=== PATIENT | male | born 1955 | race Caucasian/White ===

== ENCOUNTER 2017-02-05 04:21 | Emergency (ER) | payer SELFPAY ==
[~2017-02-05] VITALS: Ht 185.4 cm; Wt 108.9 kg
--- NOTE | ~2017-02-05 | EKG ---
[place], [place] ELECTROCARDIOGRAM REPORT NAME: BRANDT DHILLON UNIT #: [id number] ROOM: DOCTOR: GWYN AMBROSIO,ALEJANDRA BIRTHDATE: [birth year] DOS: 02/05/2017 TIME: 6:54 a.m. IMPRESSION: 1. Sinus rhythm. 2. Sinus bradycardia. 3. Nondiagnostic ST elevation in the anterior leads. ALEJANDRA PASCAL MD CM:EKGRPT:ELECTROCARDIOGRAM REPORT 1403 1423 ALEJANDRA PASCAL MD
--- NOTE | ~2017-02-05 | EKG ---
[place], [place] ELECTROCARDIOGRAM REPORT NAME: BRANDT DHILLON UNIT #: [id number] ROOM: DOCTOR: GWYN AMBROSIO,ALEJANDRA BIRTHDATE: [birth year] DOS: 02/05/2017 TIME: 0533 hours. IMPRESSION: 1. Sinus rhythm. 2. Nondiagnostic ST elevation in the anterior leads. 3. Sinus bradycardia. ALEJANDRA PASCAL MD CM:EKGRPT:ELECTROCARDIOGRAM REPORT 1402 1422 ALEJANDRA PASCAL MD
--- NOTE | ~2017-02-05 | EKG ---
[place], [place] ELECTROCARDIOGRAM REPORT NAME: BRANDT DHILLON UNIT #: [id number] ROOM: DOCTOR: GWYN AMBROSIO,ALEJANDRA BIRTHDATE: [birth year] DOS: 02/05/2017 TIME: 4:26 a.m. IMPRESSION: 1. Sinus rhythm. 2. Nonspecific ST-T changes. ALEJANDRA PASCAL MD CM:EKGRPT:ELECTROCARDIOGRAM REPORT 1403 1424 ALEJANDRA PASCAL MD
[2017-02-05] MEDS ORDERED: METFORMIN HCL500 MG PO (04:30)
[2017-02-05] MEDS ORDERED: LOSARTAN POTASS50 M1 PO (04:31)
[2017-02-05 04:38] LABS: BASO % 0.4 % (0.0-1.0); EOS # 0.4 10*3/uL (0.0-0.4); EOS % 4.1 % (1.0-4.0); HEMATOCRIT 46.2 % (42.0-52.0); HEMOGLOBIN 16.1 g/dl (14.0-18.0); LYMPH # 2.3 10*3/uL (1.3-4.4); LYMPH % 25.1 % (27.0-41.0); MEAN CELL VOLUME 85.9 fl (80.0-94.0); MEAN CORPUSCULAR HGB 29.9 pg (27.0-31.0); MEAN CORPUSCULAR HGB CONC 34.8 g/dl (33.0-37.0); MEAN PLATELET VOLUME 9.4 fl (9.6-12.3); MONO # 0.8 10*3/uL (0.1-1.0); MONO % 8.8 % (3.0-9.0); NEUT # 5.5 10*3/uL (2.3-7.9); NEUT % 61.5 % (47.0-73.0); PLATELET COUNT AUTOMATED 294 10*3/uL (130-400); RED BLOOD COUNT 5.38 10*6/uL (4.50-5.90); RED CELL DISTRI WIDTH 12.8 % (0-14.5)
[2017-02-05 04:47] LABS: ACT PARTIAL THROMBO TIME 27.2 SECONDS (20.8-31.5)
[2017-02-05 04:57] LABS: ALBUMIN 3.8 gm/dl (3.1-4.5); ALKALINE PHOSPHATASE 112 U/L (45-117); BUN 21 mg/dl (7-24); CHLORIDE 103 mmol/L (98-107); CREATININE 0.96 mg/dL (0.70-1.30); POTASSIUM 3.8 mmol/L (3.5-5.1); SGOT/AST 11 IU/L (3-35); SGPT/ALT 22 U/L (12-78); SODIUM 140 mmol/L (136-145); TOTAL PROTEIN 7.9 gm/dL (6.4-8.2)
[2017-02-05 05:00] LABS: TROPONIN I 0.229 ng/ml (<0.045)
== END 2017-02-05 07:45 | disposition short-term general hospital (02) ==
LOC: ED 04:21
PROVIDERS: Emergency Medicine Emergency Medical Services
DX: I10 Essential (primary) hypertension (principal); I24.9 Acute ischemic heart disease, unspecified; F17.200 Nicotine dependence, unspecified, uncomplicated; F10.10 Alcohol abuse, uncomplicated; Z79.84 Long term (current) use of oral hypoglycemic drugs; Z79.899 Other long term (current) drug therapy

== ENCOUNTER 2017-03-25 08:45 | Inpatient (IN) | payer MEDICAID ==
[2017-03-25] VITALS (15 sets, daily range): BP systolic 134–228; BP diastolic 84–113
[~2017-03-25] VITALS: Ht 178 cm; Wt 88.1 kg
[~2017-03-25 08:45] MED LIST: COZAAR100 MG PO; METFORMIN HCL500 MG PO
[2017-03-25] MEDS ORDERED: LIPITOR40 MG PO (08:58)
[2017-03-25] MEDS ORDERED: METOPROLOL SUCC50 M1 PO (08:58)
[2017-03-25] MEDS ORDERED: BRILINTA90 M1 PO (08:59)
[2017-03-25] MEDS ORDERED: ASPIR LOW81 MG PO (08:59)
[2017-03-25 09:21] LABS: BASO % 0.5 % (0.0-1.0); EOS # 0.3 10*3/uL (0.0-0.4); HEMATOCRIT 41.6 % (42.0-52.0); HEMOGLOBIN 14.5 g/dl (14.0-18.0); LYMPH # 1.3 10*3/uL (1.3-4.4); LYMPH % 14.8 % (27.0-41.0); MEAN CELL VOLUME 84.7 fl (80.0-94.0); MEAN CORPUSCULAR HGB 29.5 pg (27.0-31.0); MEAN CORPUSCULAR HGB CONC 34.9 g/dl (33.0-37.0); MEAN PLATELET VOLUME 9.5 fl (9.6-12.3); MONO # 0.8 10*3/uL (0.1-1.0); MONO % 8.8 % (3.0-9.0); NEUT # 6.1 10*3/uL (2.3-7.9); NEUT % 71.7 % (47.0-73.0); PLATELET COUNT AUTOMATED 238 10*3/uL (130-400); RED BLOOD COUNT 4.91 10*6/uL (4.50-5.90); RED CELL DISTRI WIDTH 13.3 % (0-14.5); WHITE BLOOD COUNT 8.5 10*3/uL (4.8-10.8)
[2017-03-25 09:28] LABS: ACT PARTIAL THROMBO TIME 27.1 SECONDS (20.8-31.5)
[2017-03-25 09:38] LABS: ALBUMIN 3.8 gm/dl (3.1-4.5); ALKALINE PHOSPHATASE 126 U/L (45-117); BUN 27 mg/dl (7-24); CHLORIDE 106 mmol/L (98-107); CREATININE 0.94 mg/dL (0.70-1.30); SGOT/AST 14 IU/L (3-35); SGPT/ALT 30 U/L (12-78); SODIUM 139 mmol/L (136-145); TOTAL PROTEIN 7.8 gm/dL (6.4-8.2)
[2017-03-25 09:48] LABS: TROPONIN I < 0.015 ng/ml (<0.045)
[2017-03-26] VITALS: BP 150/76
[2017-03-26 01:15] VITALS: BP 131/86
[2017-03-26 04:00] VITALS: BP 117/69
[2017-03-26 06:05] LABS: BASO # 0.1 10*3/uL (0.0-0.1); BASO % 0.6 % (0.0-1.0); EOS # 0.5 10*3/uL (0.0-0.4); EOS % 4.4 % (1.0-4.0); HEMATOCRIT 41.4 % (42.0-52.0); HEMOGLOBIN 14.3 g/dl (14.0-18.0); LYMPH % 19.1 % (27.0-41.0); MEAN CELL VOLUME 85.5 fl (80.0-94.0); MEAN CORPUSCULAR HGB 29.5 pg (27.0-31.0); MEAN CORPUSCULAR HGB CONC 34.5 g/dl (33.0-37.0); MEAN PLATELET VOLUME 9.6 fl (9.6-12.3); MONO # 0.9 10*3/uL (0.1-1.0); MONO % 8.6 % (3.0-9.0); NEUT # 6.9 10*3/uL (2.3-7.9); NEUT % 66.8 % (47.0-73.0); PLATELET COUNT AUTOMATED 251 10*3/uL (130-400); RED BLOOD COUNT 4.84 10*6/uL (4.50-5.90); RED CELL DISTRI WIDTH 13.5 % (0-14.5); WHITE BLOOD COUNT 10.3 10*3/uL (4.8-10.8)
[2017-03-26 06:06] LABS: ALBUMIN 3.7 gm/dl (3.1-4.5); BUN 29 mg/dl (7-24); CHLORIDE 101 mmol/L (98-107); CREATININE 1.01 mg/dL (0.70-1.30); POTASSIUM 3.7 mmol/L (3.5-5.1); SGOT/AST 14 IU/L (3-35); SGPT/ALT 31 U/L (12-78); SODIUM 137 mmol/L (136-145)
[2017-03-26 06:15] LABS: ALKALINE PHOSPHATASE 115 U/L (45-117); CHOLESTEROL 129 mg/dL (<200); FREE T4 1.12 ng/dl (0.76-1.46); HDL CHOLESTEROL 33 mg/dl (40-60); LDL CHOLESTEROL 49 mg/dL (9-159); TOTAL PROTEIN 7.5 gm/dL (6.4-8.2); TRIGLYCERIDES 236 mg/dl (<150); VLDL CHOLESTEROL 47 mg/dL (6-40)
[2017-03-26 07:15] LABS: VITAMIN D, 25-HYDROXY 18.1 ng/mL (30-100)
[2017-03-26 08:00] VITALS: BP 160/73
[2017-03-26 12:00] VITALS: BP 170/100
[2017-03-26] MEDS ORDERED: VITAMIN D31000 UNI1 PO (13:26)
[2017-03-26] MEDS ORDERED: HYDR25T PO (13:26)
== END 2017-03-26 15:05 | disposition home or self-care (01) | DRG 206 ==
LOC: ED 08:45 → ICCU 11:15 → EDHOLD 11:15 → ICCU 15:20
PROVIDERS: Emergency Medicine; Internal Medicine
DX: M94.0 Chondrocostal junction syndrome [Tietze] (principal); Z94.89 Other transplanted organ and tissue status; E11.65 Type 2 diabetes mellitus with hyperglycemia; E83.41 Hypermagnesemia; I16.1 Hypertensive emergency; D72.810 Lymphocytopenia; I48.0 Paroxysmal atrial fibrillation; E78.5 Hyperlipidemia, unspecified; R74.8 Abnormal levels of other serum enzymes; E66.9 Obesity, unspecified; K21.9 Gastro-esophageal reflux disease without esophagitis; F41.9 Anxiety disorder, unspecified; R00.1 Bradycardia, unspecified; I25.2 Old myocardial infarction; Z95.5 Presence of coronary angioplasty implant and graft; Z87.891 Personal history of nicotine dependence; Z79.899 Other long term (current) drug therapy; Z79.84 Long term (current) use of oral hypoglycemic drugs; R07.81 Pleurodynia; Z82.49 Family history of ischemic heart disease and other diseases of the circulatory system; Z82.3 Family history of stroke; Z90.49 Acquired absence of other specified parts of digestive tract; Z88.8 Allergy status to other drugs, medicaments and biological substances; Z79.82 Long term (current) use of aspirin; Z68.27 Body mass index [BMI] 27.0-27.9, adult

== ENCOUNTER 2017-05-14 09:45 | Inpatient (IN) | payer MEDICAID ==
[2017-05-14] VITALS (11 sets, daily range): BP systolic 110–146; BP diastolic 52–90
[~2017-05-14] VITALS: Ht 177.8 cm; Wt 91.7 kg
[~2017-05-14 09:45] MED LIST changes: +ASPIR LOW81 MG PO; +BRILINTA90 M1 PO; +HYDR25T PO; +LIPITOR40 MG PO; +METOPROLOL SUCC50 M1 PO; +VITAMIN D31000 UNI1 PO
[2017-05-14] MEDS ORDERED: Avapro300 MG PO (10:05)
[2017-05-14 10:15] LABS: BASO # 0.1 10*3/uL (0.0-0.1); BASO % 0.5 % (0.0-1.0); EOS # 0.3 10*3/uL (0.0-0.4); EOS % 2.7 % (1.0-4.0); HEMATOCRIT 42.8 % (42.0-52.0); HEMOGLOBIN 15.1 g/dl (14.0-18.0); LYMPH # 1.8 10*3/uL (1.3-4.4); LYMPH % 17.3 % (27.0-41.0); MEAN CELL VOLUME 85.4 fl (80.0-94.0); MEAN CORPUSCULAR HGB 30.1 pg (27.0-31.0); MEAN CORPUSCULAR HGB CONC 35.3 g/dl (33.0-37.0); MEAN PLATELET VOLUME 9.3 fl (9.6-12.3); MONO # 0.9 10*3/uL (0.1-1.0); MONO % 8.2 % (3.0-9.0); NEUT # 7.3 10*3/uL (2.3-7.9); NEUT % 70.9 % (47.0-73.0); PLATELET COUNT AUTOMATED 275 10*3/uL (130-400); RED BLOOD COUNT 5.01 10*6/uL (4.50-5.90); RED CELL DISTRI WIDTH 13.3 % (0-14.5); WHITE BLOOD COUNT 10.4 10*3/uL (4.8-10.8)
[2017-05-14 10:27] LABS: ACT PARTIAL THROMBO TIME 24.3 SECONDS (20.8-31.5)
[2017-05-14 10:31] LABS: ALBUMIN 3.9 gm/dl (3.1-4.5); ALKALINE PHOSPHATASE 143 U/L (45-117); BUN 26 mg/dl (7-24); CHLORIDE 106 mmol/L (98-107); CREATININE 0.94 mg/dL (0.70-1.30); LIPASE 120 U/L (73-393); SGOT/AST 17 IU/L (3-35); SGPT/ALT 33 U/L (12-78); SODIUM 138 mmol/L (136-145); TOTAL PROTEIN 8.1 gm/dL (6.4-8.2)
[2017-05-14 10:39] LABS: TROPONIN I < 0.015 ng/ml (<0.045)
[2017-05-14] MEDS ORDERED: HYDROCHLOROTHIA25 M1 PO (11:27)
[2017-05-14] MEDS ORDERED: NITROGLYCERIN0.4 MG SL (11:34)
[2017-05-14] MEDS ORDERED: BRILINTA90 M1 PO (12:18)
[2017-05-14] MEDS ORDERED: VITAMIN D31000 UNI1 PO (12:59)
[2017-05-14 13:33] LABS: PHOSPHOROUS 3.6 mg/dL (2.5-4.9)
[2017-05-14 13:34] LABS: FREE T4 1.06 ng/dl (0.76-1.46); TROPONIN I < 0.015 ng/ml (<0.045)
[2017-05-14 13:40] LABS: THYROID STIM HORMONE (HS) 0.695 uIU/ml (0.358-4.75)
[2017-05-15] VITALS: BP 120/72
[2017-05-15 02:00] VITALS: BP 112/82
[2017-05-15 04:00] VITALS: BP 114/86
[2017-05-15 06:00] VITALS: BP 124/86
[2017-05-15 07:12] LABS: BASO # 0.1 10*3/uL (0.0-0.1); BASO % 0.6 % (0.0-1.0); EOS # 0.4 10*3/uL (0.0-0.4); EOS % 4.2 % (1.0-4.0); HEMATOCRIT 43.4 % (42.0-52.0); HEMOGLOBIN 15.1 g/dl (14.0-18.0); LYMPH # 2.5 10*3/uL (1.3-4.4); LYMPH % 23.5 % (27.0-41.0); MEAN CELL VOLUME 85.6 fl (80.0-94.0); MEAN CORPUSCULAR HGB 29.8 pg (27.0-31.0); MEAN CORPUSCULAR HGB CONC 34.8 g/dl (33.0-37.0); MEAN PLATELET VOLUME 9.3 fl (9.6-12.3); MONO # 0.9 10*3/uL (0.1-1.0); MONO % 8.3 % (3.0-9.0); NEUT # 6.7 10*3/uL (2.3-7.9); PLATELET COUNT AUTOMATED 257 10*3/uL (130-400); RED BLOOD COUNT 5.07 10*6/uL (4.50-5.90); RED CELL DISTRI WIDTH 13.4 % (0-14.5); WHITE BLOOD COUNT 10.5 10*3/uL (4.8-10.8)
[2017-05-15 07:26] LABS: ALBUMIN 3.4 gm/dl (3.1-4.5); ALKALINE PHOSPHATASE 120 U/L (45-117); BUN 30 mg/dl (7-24); CHLORIDE 101 mmol/L (98-107); CREATININE 1.02 mg/dL (0.70-1.30); POTASSIUM 3.8 mmol/L (3.5-5.1); SGOT/AST 19 IU/L (3-35); SGPT/ALT 31 U/L (12-78); SODIUM 135 mmol/L (136-145); TOTAL PROTEIN 7.5 gm/dL (6.4-8.2)
[2017-05-15 08:00] VITALS: BP 117/73
[2017-05-15 12:00] VITALS: BP 122/76
[2017-05-15] MEDS ORDERED: XARE20MG PO (15:31)
[2017-05-15] MEDS ORDERED: TOPROL XL50 M1 PO (15:31)
== END 2017-05-15 16:38 | disposition home or self-care (01) | DRG 310 ==
LOC: ED 09:45 → EDHOLD 11:07 → 4E 11:07
PROVIDERS: Emergency Medicine; Internal Medicine Hospice and Palliative Medicine
DX: I48.0 Paroxysmal atrial fibrillation (principal); E11.65 Type 2 diabetes mellitus with hyperglycemia; E83.41 Hypermagnesemia; I10 Essential (primary) hypertension; I25.10 Atherosclerotic heart disease of native coronary artery without angina pectoris; E78.00 Pure hypercholesterolemia, unspecified; D72.810 Lymphocytopenia; R79.82 Elevated C-reactive protein (CRP); I25.2 Old myocardial infarction; Z90.49 Acquired absence of other specified parts of digestive tract; Z95.5 Presence of coronary angioplasty implant and graft; Z87.891 Personal history of nicotine dependence; Z82.49 Family history of ischemic heart disease and other diseases of the circulatory system; Z83.3 Family history of diabetes mellitus; Z88.8 Allergy status to other drugs, medicaments and biological substances; Z79.82 Long term (current) use of aspirin; Z79.899 Other long term (current) drug therapy